=== PATIENT | male | born 1965 | race Caucasian/White ===

== ENCOUNTER 2018-01-14 14:02 | Inpatient (IN) | END 2018-01-21 14:50 | disposition home or self-care (01) | DRG 872 ==

== ENCOUNTER 2018-02-21 13:06 | Emergency (ER) | END 2018-02-21 15:09 | disposition left against medical advice (07) ==

== ENCOUNTER 2018-02-21 15:17 | Emergency (ER) | END 2018-02-21 18:12 | disposition home or self-care (01) ==

== ENCOUNTER 2018-12-31 19:46 | Inpatient (IN) | payer OTHER ==
[~2018-12-31] VITALS: Ht 182.9 cm; Wt 80.9 kg
[~2018-12-31 19:46] MED LIST: HYDR-3980 PO; PRED20TA PO
[2018-12-31 20:40] VITALS: Ht 182.9 cm; Wt 80.9 kg
[2018-12-31 21:00] VITALS: BP 112/70; PULSE 90; RESP 18
[2018-12-31] MEDS: morphine 2 MG INJ IV PRN (21:57)
[2018-12-31] MEDS ORDERED: OXYCODONE/ACETAMINOPHEN (5/325) TAB PO PRN (22:00)
[2018-12-31] MEDS ORDERED: ACETAMINOPHEN 325 MG TAB PO PRN (22:00)
[2018-12-31] MEDS ORDERED: ONDANSETRON 4 MG INJ IV PRN (22:00)
[2018-12-31] MEDS ORDERED: NACL 0.9% 3 ML SYG IV SCH (22:00)
[2018-12-31] MEDS: SOD CHLORIDE 0.9% 1,000 ML IV SCH (22:12)
[2019-01-01] MEDS ORDERED: COLCHICINE 0.6 MG TAB PO ONE ×2
--- NOTE | 2019-01-01 00:01 | HP ---
Date/Time of Note Date/Time of Note DATE: 01/01/19 TIME: 00:00 Assessment/Plan VTE Prophylaxis Pharmacological prophylaxis: other Assessment/Plan Hospital Course Objective Physical exam General: Patient is laying in bed and answers questions appropriately Mentation: Patient is alert and oriented 4, Head: Normocephalic atraumatic Eyes: EOMI, pupils reactive to light Neck: Supple, nontender, midline Respiratory: Clear to auscultation bilaterally Cardiovascular: regular rate, no obvious murmurs Gastrointestinal: non-tender to palpation, bowel sounds heard. Neurological: Moves all extremities spontaneously, although lower extremity movement is limited due to pain Skin: No new skin lesions Assessment and plan Severe gouty attack -X-ray done at outside facility was read only by ED physician that showed arthritis, will reorder knee and feet x-ray -Uric acid is elevated, consistent with gout attack -Dexamethasone and Toradol was given at outside facility, will continue oral prednisone for a short course and give a spot dose of colchicine. -We will hold off on additional indomethacin for now due to possible acute kidney injury due to volume depletion, -Discussed with patient the importance of taking allopurinol on a regular basis Bilateral knee and feet pain -Likely secondary to above gouty attack, however will still get x-ray to rule out other potential pathology Acute kidney injury versus chronic kidney disease -Patient was bedbound and unable to walk for the past 2 days, creatinine may be secondary to volume depletion, will give some normal saline, and reassess - Disposition -Treat for acute gouty attack, when ambulatory discharge patient. Result Diagram: 12/31/18222412/31/182224 Results 24hrs Laboratory Tests Test 12/31/18 22:25 White Blood Count 10.2 Red Blood Count 4.97 Hemoglobin 13.3 L Hematocrit 41.5 L Mean Corpuscular Volume 83.5 Mean Corpuscular Hemoglobin 26.8 L Mean Corpuscular Hemoglobin Concent 32.0 Red Cell Distribution Width 14.1 Platelet Count 158 Mean Platelet Volume 9.8 Immature Granulocytes % 0.500 H Neutrophils % 90.4 H Lymphocytes % 4.3 L Monocytes % 4.7 Eosinophils % 0.0 Basophils % 0.1 Nucleated Red Blood Cells % 0.0 Immature Granulocytes # 0.050 H Neutrophils # 9.2 H Lymphocytes # 0.4 L Monocytes # 0.5 Eosinophils # 0.0 Basophils # 0.0 Nucleated Red Blood Cells # 0.0 Erythrocyte Sedimentation Rate 50 H Sodium Level 136 Potassium Level 4.5 Chloride Level 95 L Carbon Dioxide Level 25 Anion Gap 16 H Blood Urea Nitrogen 18 Creatinine 1.33 H Est Glomerular Filtrat Rate mL/min 56 L Glucose Level 357 H Uric Acid 9.3 H Calcium Level 9.2 Total Bilirubin 0.6 Direct Bilirubin 0.00 Indirect Bilirubin 0.6 Aspartate Amino Transf (AST/SGOT) 18 Alanine Aminotransferase (ALT/SGPT) < 6 L Alkaline Phosphatase 104 Total Protein 7.6 Albumin 3.8 Globulin 3.80 H Albumin/Globulin Ratio 1.00 HPI/ROS Admit Date/Time Admit Date/Time Dec 31, 2018 at 20:34 Hx of Present Illness Patient is a male with a past medical history significant for moderate to severe gouty arthritis who presents to [facility] as a transfer from outside facility. Patient states that he has suffered from a gouty attack and has been unable to move for the past 2 days which is why he called ambulance and was sent over to the other hospital. Patient was transferred for insurance reasons. Patient received IV steroids, as well as IV Toradol at other facility and patient already feels a little bit better. Patient does not take allopurinol on a normal basis. Patient currently denies chest pain, shortness of breath, headache, nausea, vomiting, abdominal pain. Patient states the pain is worse in the bilateral knees in the bilateral feet area with some radiation up to his left groin PMH/Family/Social Past Medical History Medications Current Medications Influenza Virus Vaccine Quadrival (Fluzone) 0.5 ml ONCE ONCE IM* ; Start 01/01/19 at 10:00; Stop 01/01/19 at 10:01 Sodium Chloride 1,000 ml @ 40 mls/hr Q24H IV Last administered on 12/31/18at 22:12; Admin Dose 40 MLS/HR; Start 12/31/18 at 21:42; Stop 01/01/19 at 22:41 IV Flush (NS 3 ml) 3 ml PER PROTOCOL IV ; Start 12/31/18 at 22:00 Ondansetron HCl (Zofran Inj) 4 mg Q6H PRN IV NAUSEA/VOMITING; Start 12/31/18 at 22:00 Acetaminophen (Tylenol Tab) 650 mg Q6H PRN PO .PAIN 1-3 OR TEMP; Start 12/31/18 at 22:00 Oxycodone/ Acetaminophen (Percocet (5/ 325)) 1 tab Q6H PRN PO .PAINS 4-6 Last administered on 12/31/18at 23:43; Admin Dose 1 TAB; Start 12/31/18 at 22:00 Morphine Sulfate (morphine) 2 mg Q4H PRN IV .PAIN 7-10 Last administered on 12/31/18at 21:57; Admin Dose 2 MG; Start 12/31/18 at 22:00 Colchicine (Colchicine) 1.2 mg ONCE ONCE PO ; Start 01/01/19 at 00:00; Stop 01/01/19 at 00:01 Colchicine (Colchicine) 0.6 mg ONCE ONCE PO ; Start 01/01/19 at 00:00; Stop 01/01/19 at 00:01 Prednisone (Prednisone) 20 mg DAILY PO ; Start 01/01/19 at 09:00; Stop 01/03/19 at 09:01 Coded Allergies: No Known Allergies (Verified Allergy, Unknown, 12/31/18) Family History Significant Family History: no pertinent family hx Social History Smoking Status: Smoker,current status unk Exam/Review of Systems Vital Signs Vitals Vital Signs Date Temp Pulse Resp B/P (MAP) Pulse Ox O2 O2 Flow FiO2 Time Delivery Rate 12/31/18 97.8 90 18 112/70 95 Room Air 21:00 (84) Intake and Output 12/31/18 12/31/18 01/01/19 1414:59 22:59 06:59 IntakeIntake Total 200 ml OutputOutput Total 200 ml BalanceBalance 0 ml BRANT GRIFFIN Jan 01, 2019 00:01
[2019-01-01 01:28] VITALS: BP 107/66; PULSE 70; RESP 18
[2019-01-01 08:17] VITALS: BP 117/72; PULSE 71; RESP 16
[2019-01-01] MEDS: predniSONE 20 MG TAB PO SCH (09:33)
[2019-01-01] MEDS: morphine 2 MG INJ IV PRN ×3 (09:40→19:55)
--- NOTE | 2019-01-01 14:03 | PN ---
Date/Time of Note Date/Time of Note DATE: 01/01/19 TIME: 14:00 Assessment/Plan VTE Prophylaxis Risk score (from Ns)>0 risk: 3 SCD applied (from Ns): Yes SCD contraindicated: low risk/ambulating Pharmacological prophylaxis: LMWH Lines/Catheters IV [facility]from [facility] Peripheral IV Urinary Cath still in place: No Assessment/Plan Hospital Course Assessment and plan 1. Acute severe gout exacerbation, stable improved continue colchicine prednisone 2. Chronic tophaceous gout, consider allopurinol. Outpatient referral. May need to cut back on protein and soda 3. Acute renal failure stable resolved 4. Debility, start PT may need DME 5. Medication nonadherence? S: Patient feels better but unable to ambulate. No fever diarrhea. Does not take allopurinol and had some lasagna and lots of soda lately Objective: Vital signs stable Physical exam No pallor Regular Clear Benign No edema.+bilat lwr ext/ erythema of his toes dimin range of motion of toes and ankle. Result Diagram: 01/01/19 0557 01/01/19 0556 Results 24hrs Laboratory Tests Test 12/31/18 22:25 01/01/19 05:56 01/01/19 05:57 White Blood Count 10.2 9.4 Red Blood Count 4.97 4.73 Hemoglobin 13.3 L 12.9 L Hematocrit 41.5 L 39.5 L Mean Corpuscular Volume 83.5 83.5 Mean Corpuscular Hemoglobin 26.8 L 27.3 L Mean Corpuscular Hemoglobin Concent 32.0 32.7 Red Cell Distribution Width 14.1 13.5 Platelet Count 158 143 Mean Platelet Volume 9.8 9.4 Immature Granulocytes % 0.500 H 0.600 H Neutrophils % 90.4 H 89.1 H Lymphocytes % 4.3 L 5.1 L Monocytes % 4.7 5.1 Eosinophils % 0.0 0.0 Basophils % 0.1 0.1 Nucleated Red Blood Cells % 0.0 0.0 Immature Granulocytes # 0.050 H 0.060 H Neutrophils # 9.2 H 8.4 H Lymphocytes # 0.4 L 0.5 L Monocytes # 0.5 0.5 Eosinophils # 0.0 0.0 Basophils # 0.0 0.0 Nucleated Red Blood Cells # 0.0 0.0 Erythrocyte Sedimentation Rate 50 H Sodium Level 136 138 Potassium Level 4.5 4.5 Chloride Level 95 L 99 Carbon Dioxide Level 25 27 Anion Gap 16 H 12 Blood Urea Nitrogen 18 24 H Creatinine 1.33 H 1.19 Est Glomerular Filtrat Rate mL/min 56 L > 60 Glucose Level 357 H 355 H Uric Acid 9.3 H Calcium Level 9.2 9.3 Total Bilirubin 0.6 0.2 Direct Bilirubin 0.00 0.00 Indirect Bilirubin 0.6 0.2 Aspartate Amino Transf (AST/SGOT) 18 14 L Alanine Aminotransferase (ALT/SGPT) < 6 L < 6 L Alkaline Phosphatase 104 99 Total Protein 7.6 6.9 Albumin 3.8 3.5 Globulin 3.80 H 3.40 H Albumin/Globulin Ratio 1.00 1.02 Hemoglobin A1c 5.6 Magnesium Level 2.2 Exam/Review of Systems Exam Vitals Vital Signs Date Temp Pulse Resp B/P (MAP) Pulse Ox O2 O2 Flow FiO2 Time Delivery Rate 01/01/19 97.8 71 16 117/72 100 08:17 (87) 01/01/19 Room Air 01:28 Intake and Output 12/31/18 12/31/18 01/01/19 1414:59 22:59 06:59 IntakeIntake Total 340 ml OutputOutput Total 600 ml BalanceBalance -260 ml Results Results 24hrs Laboratory Tests Test 12/31/18 22:25 01/01/19 05:56 01/01/19 05:57 White Blood Count 10.2 9.4 Red Blood Count 4.97 4.73 Hemoglobin 13.3 L 12.9 L Hematocrit 41.5 L 39.5 L Mean Corpuscular Volume 83.5 83.5 Mean Corpuscular Hemoglobin 26.8 L 27.3 L Mean Corpuscular Hemoglobin Concent 32.0 32.7 Red Cell Distribution Width 14.1 13.5 Platelet Count 158 143 Mean Platelet Volume 9.8 9.4 Immature Granulocytes % 0.500 H 0.600 H Neutrophils % 90.4 H 89.1 H Lymphocytes % 4.3 L 5.1 L Monocytes % 4.7 5.1 Eosinophils % 0.0 0.0 Basophils % 0.1 0.1 Nucleated Red Blood Cells % 0.0 0.0 Immature Granulocytes # 0.050 H 0.060 H Neutrophils # 9.2 H 8.4 H Lymphocytes # 0.4 L 0.5 L Monocytes # 0.5 0.5 Eosinophils # 0.0 0.0 Basophils # 0.0 0.0 Nucleated Red Blood Cells # 0.0 0.0 Erythrocyte Sedimentation Rate 50 H Sodium Level 136 138 Potassium Level 4.5 4.5 Chloride Level 95 L 99 Carbon Dioxide Level 25 27 Anion Gap 16 H 12 Blood Urea Nitrogen 18 24 H Creatinine 1.33 H 1.19 Est Glomerular Filtrat Rate mL/min 56 L > 60 Glucose Level 357 H 355 H Uric Acid 9.3 H Calcium Level 9.2 9.3 Total Bilirubin 0.6 0.2 Direct Bilirubin 0.00 0.00 Indirect Bilirubin 0.6 0.2 Aspartate Amino Transf (AST/SGOT) 18 14 L Alanine Aminotransferase (ALT/SGPT) < 6 L < 6 L Alkaline Phosphatase 104 99 Total Protein 7.6 6.9 Albumin 3.8 3.5 Globulin 3.80 H 3.40 H Albumin/Globulin Ratio 1.00 1.02 Hemoglobin A1c 5.6 Magnesium Level 2.2 Medications Medication Current Medications Sodium Chloride 1,000 ml @ 40 mls/hr Q24H IV Last administered on 12/31/18at 22:12; Admin Dose 40 MLS/HR; Start 12/31/18 at 21:42; Stop 01/01/19 at 22:41 IV Flush (NS 3 ml) 3 ml PER PROTOCOL IV ; Start 12/31/18 at 22:00 Ondansetron HCl (Zofran Inj) 4 mg Q6H PRN IV NAUSEA/VOMITING; Start 12/31/18 at 22:00 Acetaminophen (Tylenol Tab) 650 mg Q6H PRN PO .PAIN 1-3 OR TEMP; Start 12/31/18 at 22:00 Oxycodone/ Acetaminophen (Percocet (5/ 325)) 1 tab Q6H PRN PO .PAINS 4-6 Last administered on 12/31/18at 23:43; Admin Dose 1 TAB; Start 12/31/18 at 22:00 Morphine Sulfate (morphine) 2 mg Q4H PRN IV .PAIN 7-10 Last administered on 01/01/19at 09:40; Admin Dose 2 MG; Start 12/31/18 at 22:00 Prednisone (Prednisone) 20 mg DAILY PO Last administered on 01/01/19at 09:33; Admin Dose 20 MG; Start 01/01/19 at 09:00; Stop 01/03/19 at 09:01 DANIEL SUERO MD Jan 01, 2019 14:03
[2019-01-01 14:44] VITALS: BP 109/66; PULSE 72; RESP 16
[2019-01-01] MEDS: SOD CHLORIDE 0.9% 1,000 ML IV SCH ×2 (19:56→21:09)
[2019-01-02] MEDS: morphine 2 MG INJ IV PRN ×3 (01:44→10:57)
[2019-01-02 02:00] VITALS: BP 114/68; PULSE 65; RESP 18
[2019-01-02 07:13] VITALS: BP 103/63; PULSE 70; RESP 16
[2019-01-02] MEDS: predniSONE 20 MG TAB PO SCH (08:24)
[2019-01-02] MEDS ORDERED: ENOXAPARIN 30 MG/0.3 ML SYG SC SCH (09:00)
[2019-01-02] MEDS ORDERED: COLCHICINE 0.6 MG TAB PO SCH (09:00)
[2019-01-02] MEDS ORDERED: FAMO-96 PO (13:01)
[2019-01-02] MEDS ORDERED: INDO-39 PO (13:01)
[2019-01-02] MEDS ORDERED: PRED20TA PO (13:01)
--- NOTE | 2019-01-02 13:05 | PDOCDIS ---
Discharge Instructions CONDITION [id number] Patient Condition: [id number] Stable HOME CARE INSTRUCTIONS: [id number] Diet Instructions: [id number] Regular [id number] Special Diet: Nfsce1d Low uric acid FOLLOW UP/APPOINTMENTS Follow-up Plan Daryn Mckeon MD Specialty: Internal Medicine Office Address: [address] [place] [address] [place], [place] [id number] Office OTHER ORDERS: Other Orders: 1. Take a regular, low uric acid diet. 2. Take medications as per prescription. 3. Follow-up with your primary care physician in 2 weeks. If you do not have a primary care physician, please call Dr. Daryn Mckeon's office. 4. Please follow-up with your insurance regarding rheumatology appointment. 5. Please go to the nearest emergency room if you have worsening joint pain. MICKIE MONTERO NP Jan 02, 2019 13:05
--- NOTE | 2019-01-02 13:13 | DS ---
Date/Time of Note Date/Time of Note DATE: 01/02/19 TIME: 13:11 Discharge Summary Admission/Discharge Info Admit Date/Time Dec 31, 2018 at 20:34 Discharge Date/Time Discharge Diagnosis 1. Acute gout flare. 2. Normocytic anemia. 3. Acute nonoliguric kidney injury. Patient Condition: Stable Procedures Left Foot X-Ray IMPRESSION: Hallux valgus deformity. Findings described above suggestive of gout with dense tophi at the first MTP, base of the fifth metatarsal and ankle. Right Foot X-Ray IMPRESSION: 1. Extensive marginal erosions of the first through fifth rays with tophi most compatible with gout. Bilateral Knee X-Ray IMPRESSION: Findings concerning for advanced gouty arthritis of the knees. Hx of Present Illness This is a 53-year-old male with gouty arthritis who went to an outside facility because of inability to move secondary to gout attack. The patient verbalized the pain is worse in bilateral feet. Patient also verbalized pain in bilateral knees. The patient was transferred to [facility] for further evaluation because of insurance reasons. Hospital Course The patient had evidence of LUCIANO with a creatinine of 1.33. Therefore, the patient was not started on any NSAIDs. The patient was started on steroids. The patient was started on colchicine. The patient was encouraged to follow a diet low in uric acid. Nevertheless, the patient was noticed to be drinking too much soda. The patient's uric acid level was 9.3. The patient responded well to the treatment strategy. The patient's renal failure resolved with holding nephrotoxic medications. The patient was noticed to have hyperglycemia. This was secondary to underlying steroid use. The patient's hemoglobin A1c was within normal limits. The patient has chronic gout. The patient may be a good candidate for urate lowering therapy with allopurinol. Patient needs outpatient rheumatology follow-up. Case management order was put in for arranging with insurance for outpatient rheumatology follow-up. Meanwhile, the patient will be discharged home on tapering dose of steroids as the patient's symptomatology improved significantly. Patient was noticed to have a normocytic anemia. The patient's H&H remained stable. Discharge Instructions 1. Take a regular, low uric acid diet. 2. Take medications as per prescription. 3. Follow-up with your primary care physician in 2 weeks. If you do not have a primary care physician, please call Dr. Daryn Mckeon's office. 4. Please follow-up with your insurance regarding rheumatology appointment. 5. Please go to the nearest emergency room if you have worsening joint pain. The patient verbalized understanding of his discharge instructions. The patient was seen in collaboration with Dr. Ibarra. Home Meds Active Scripts Famotidine* (Pepcid*) 20 Mg Tablet, 20 MG PO BID for 7 Days, #14 TAB Prov:MICKIE MONTERO CLINICAL PHARMACY TECHNICIAN 01/02/19 Indomethacin* (Indocin*) 50 Mg Cap, 50 MG PO TID for 3 Days, #9 CAP Prov:MICKIE MONTERO CLINICAL PHARMACY TECHNICIAN 01/02/19 Prednisone* (Prednisone*) 20 Mg Tab, 20 MG PO DAILY for 1 Day, TAB Prednisone 20 mg p.o. daily 1 day, then Prednisone 10 mg p.o. daily 2 days, then Prednisone 5 mg p.o. daily 2 days. Prov:MICKIE MONTERO CLINICAL PHARMACY TECHNICIAN 01/02/19 Discontinued Scripts Prednisone* (Prednisone*) 20 Mg Tab, 60 MG PO DAILY for 5 Days, TAB Prov:JER MANZANO MD 02/21/18 Hydrocodone/Acetaminophen ([place] 10-325 Tablet) 1 Each Tablet, 1 TAB PO Q6H PRN for PAIN, #7 TAB Prov:JER MANZANO MD 02/21/18 Follow-up Plan Daryn Mckeon MD Specialty: Internal Medicine Office Address: [address] [place] [address] Office Primary Care Provider Not On Staff Doctor Time spent on discharge: > 30 minutes Pending Labs Laboratory Tests Test 01/02/19 05:00 White Blood Count 15.7 10^3/ul (4.8-10.8) Red Blood Count 4.62 10^6/ul (4.70-6.10) Hemoglobin 12.6 g/dl (14.0-18.0) Hematocrit 37.7 % (42.0-52.0) Mean Corpuscular Volume 81.6 fl (82.0-101.0) Mean Corpuscular Hemoglobin 27.3 pg (29.0-33.0) Mean Corpuscular Hemoglobin Concent 33.4 g/dl (32.0-37.0) Red Cell Distribution Width 13.6 % (11.5-14.5) Platelet Count 199 10^3/UL (140-415) Mean Platelet Volume 10.8 fl (7.4-10.4) Immature Granulocytes % 0.600 % (0.001-0.429) Neutrophils % 89.4 % (39.0-77.0) Lymphocytes % 5.5 % (15.0-51.0) Monocytes % 4.4 % (0.0-11.0) Eosinophils % 0.0 % (0.0-7.0) Basophils % 0.1 % (0.0-2.0) Nucleated Red Blood Cells % 0.0 /100WBC (0.0-0.0) Immature Granulocytes # 0.100 10^3/ul (0.0-0.031) Neutrophils # 14.1 10^3/ul (1.6-7.5) Lymphocytes # 0.9 10^3/ul (0.8-2.9) Monocytes # 0.7 10^3/ul (0.3-0.9) Eosinophils # 0.0 10^3/ul (0.0-0.5) Basophils # 0.0 10^3/ul (0.0-0.1) Nucleated Red Blood Cells # 0.0 10^3/ul (0.0-0.0) Sodium Level 138 mmol/L (135-144) Potassium Level 4.6 mmol/L (3.5-5.1) Chloride Level 101 mmol/L (97-110) Carbon Dioxide Level 25 mmol/L (21-31) Anion Gap 12 (5-13) Blood Urea Nitrogen 24 mg/dl (7-20) Creatinine 0.91 mg/dl (0.61-1.24) Est Glomerular Filtrat Rate mL/min > 60 mL/min (>60) Glucose Level 233 mg/dl (70-220) Hemoglobin A1c 5.7 % (0-5.9) Calcium Level 9.2 mg/dl (8.4-10.2) Phosphorus Level 2.4 mg/dl (2.5-4.9) Total Bilirubin 0.0 mg/dl (0.2-1.3) Direct Bilirubin 0.00 mg/dl (0.00-0.20) Indirect Bilirubin 0.0 mg/dl (0-1.1) Aspartate Amino Transf (AST/SGOT) 75 IU/L (15-46) Alanine Aminotransferase (ALT/SGPT) 41 IU/L (13-69) Alkaline Phosphatase 102 IU/L (42-121) Total Protein 6.8 g/dl (6.1-8.1) Albumin 3.3 g/dl (3.3-4.9) Globulin 3.50 g/dl (1.3-3.2) Albumin/Globulin Ratio 0.94 Thyroid Stimulating Hormone (TSH) 0.601 MIU/L (0.465-4.680) MICKIE MONTERO NP Jan 02, 2019 13:13
[2019-01-02 14:03] VITALS: BP 122/77; PULSE 75; RESP 16
== END 2019-01-02 15:05 | disposition home or self-care (01) | DRG 554 ==
LOC: 2NE 20:34
PROVIDERS: ADMIT Hospitalist; ATTEND Internal Medicine
DX: M1A.9XX1 Chronic gout, unspecified, with tophus (tophi) (principal); N17.9 Acute kidney failure, unspecified; F17.200 Nicotine dependence, unspecified, uncomplicated; R53.81 Other malaise; D64.9 Anemia, unspecified
CPT/HCPCS: 73630; 80053; 83036; 83735; 84100; 84443; 84560; 85025; 85651; 97162; J1650; J2270; J7030; J7512

== ENCOUNTER 2019-03-13 17:20 | Emergency (ER) | payer OTHER ==
[~2019-03-13] VITALS: Ht 182.9 cm; Wt 86.7 kg
[~2019-03-13 17:20] MED LIST changes: +FAMO-96 PO; -HYDR-3980 PO; +INDO-39 PO
[2019-03-13 17:32] VITALS: Ht 182.9 cm; Wt 86.7 kg
[2019-03-13] MEDS ORDERED: KETOROLAC 30 MG INJ IV STA (20:25)
[2019-03-13] MEDS ORDERED: IBUP-1542 PO (21:38)
[2019-03-13 21:50] VITALS: BP 125/82; PULSE 78; RESP 16
--- NOTE | 2019-03-13 22:23 | ERD ---
ER Documentation Chief Complaint Chief Complaint abdominal bloating, frequent urination, generalize body aches HPI Patient is a 53-year-old male with gout who presents with aching all over his body. The patient has diffuse joint pain. He says "1 year ago I had sepsis and it feels like when I had sepsis". He has cold sweats. The symptoms started a few days ago. He has had no treatment as of yet. Upon review of old medical re cords this is the patient's eighth visit to the ER since 2013. Review of the emergency department exchange system shows visits to 3 separate emergency departments for a total of 7 visits over the past 1 year. He does not remember the name of his primary doctor. ROS All systems reviewed and are negative except as per history of present illness. Medications Home Meds Active Scripts Ibuprofen* (Motrin*) 600 Mg Tab, 600 MG PO Q6H PRN for PAIN AND OR ELEVATED TEMP, #30 TAB Prov:NANCIE ROBLES MD 03/13/19 Famotidine* (Pepcid*) 20 Mg Tablet, 20 MG PO BID for 7 Days, #14 TAB Prov:MICKIE MONTERO NP 01/02/19 Indomethacin* (Indocin*) 50 Mg Cap, 50 MG PO TID for 3 Days, #9 CAP Prov:MICKIE MONTERO NP 01/02/19 Prednisone* (Prednisone*) 20 Mg Tab, 20 MG PO DAILY for 1 Day, TAB Prednisone 20 mg p.o. daily 1 day, then Prednisone 10 mg p.o. daily 2 days, then Prednisone 5 mg p.o. daily 2 days. Prov:MICKIE MONTERO NP 01/02/19 Allergies Allergies: Coded Allergies: No Known Allergies (Verified Allergy, Unknown, 12/31/18) PMhx/Soc History of Surgery: Yes (cervical , thoracic ,both left elbow, both knees , testicullar , ) Anesthesia Reaction: Yes (episode of resp/ cardiac arrest ) Hx Neurological Disorder: No Hx Respiratory Disorders: No Hx Cardiac Disorders: No Hx Psychiatric Problems: No Hx Miscellaneous Medical Probl: Yes (gout) Hx Alcohol Use: No Hx Substance Use: No Hx Tobacco Use: No Smoking Status: Never smoker FmHx Family History: diabetes Physical Exam Vitals Vital Signs Date Temp Pulse Resp B/P (MAP) Pulse Ox O2 O2 Flow FiO2 Time Delivery Rate 03/13/19 78 16 125/82 99 Room Air 21:50 (96) 03/13/19 97.8 83 16 128/87 100 Room Air 20:53 (101) 03/13/19 98.8 88 18 160/97 98 17:32 (118) Physical Exam Const: No acute distress Head: Atraumatic Eyes: Normal Conjunctiva ENT: Normal External Ears, Nose and Mouth. Neck: Full range of motion. No meningismus. Resp: Clear to auscultation bilaterally Cardio: Regular rate and rhythm, no murmurs Abd: Soft, non tender, non distended. Normal bowel sounds Skin: No petechiae or rashes Back: No midline or flank tenderness Ext: Tophi of the bilateral elbows Neur: Awake and alert Psych: Normal Mood and Affect Result Diagram: 03/13/19204003/13/192040 Results 24 hrs Laboratory Tests Test 03/13/19 20:33 03/13/19 20:41 POC Venous Lactate 1.9 mmol/L White Blood Count 8.7 10^3/ul Red Blood Count 5.38 10^6/ul Hemoglobin 14.7 g/dl Hematocrit 45.1 % Mean Corpuscular Volume 83.8 fl Mean Corpuscular Hemoglobin 27.3 pg Mean Corpuscular Hemoglobin Concent 32.6 g/dl Red Cell Distribution Width 15.9 % Platelet Count 187 10^3/UL Mean Platelet Volume 9.8 fl Immature Granulocytes % 0.300 % Neutrophils % 61.9 % Lymphocytes % 28.5 % Monocytes % 7.0 % Eosinophils % 1.8 % Basophils % 0.5 % Nucleated Red Blood Cells % 0.0 /100WBC Immature Granulocytes # 0.030 10^3/ul Neutrophils # 5.4 10^3/ul Lymphocytes # 2.5 10^3/ul Monocytes # 0.6 10^3/ul Eosinophils # 0.2 10^3/ul Basophils # 0.0 10^3/ul Nucleated Red Blood Cells # 0.0 10^3/ul Urine Color YELLOW Urine Clarity CLEAR Urine pH 5.0 Urine Specific Shepherd 1.012 Urine Ketones NEGATIVE mg/dL Urine Nitrite NEGATIVE mg/dL Urine Bilirubin NEGATIVE mg/dL Urine Urobilinogen NEGATIVE mg/dL Urine Leukocyte Esterase NEGATIVE Dave/ul Urine Microscopic RBC 0 /HPF Urine Microscopic WBC 0 /HPF Urine Hemoglobin 1+ mg/dL Urine Glucose NEGATIVE mg/dL Urine Total Protein NEGATIVE mg/dl Sodium Level 143 mmol/L Potassium Level 4.0 mmol/L Chloride Level 106 mmol/L Carbon Dioxide Level 23 mmol/L Anion Gap 14 Blood Urea Nitrogen 23 mg/dl Creatinine 1.01 mg/dl Est Glomerular Filtrat Rate mL/min > 60 mL/min Glucose Level 216 mg/dl Calcium Level 10.3 mg/dl Total Bilirubin 0.6 mg/dl Direct Bilirubin 0.00 mg/dl Indirect Bilirubin 0.6 mg/dl Aspartate Amino Transf (AST/SGOT) 22 IU/L Alanine Aminotransferase (ALT/SGPT) 12 IU/L Alkaline Phosphatase 86 IU/L Total Protein 8.5 g/dl Albumin 4.6 g/dl Globulin 3.90 g/dl Albumin/Globulin Ratio 1.17 Lipase 82 U/L Current Medications Medications Dose Sig/Carlos Start Time Status Last (Trade) Ordered Route PRN Stop Time Admin Dose Reason Admin Ketorolac 30 mg ONCE STAT 03/13/19 DC 03/13/19 Tromethamine IV 20:25 20:57 (Toradol) 03/13/19 20:27 Procedures/MDM EKG read by me: Rate/Rhythm: Regular rate and rhythm at a normal rate Intervals: Normal Impression: No evidence of ischemia or arrhythmia Patient is a 53-year-old male presents thinking that he might have sepsis. Lactic acid was normal. Laboratory studies were basically normal including a normal white blood cell count. I see no sign of infection at this time. The patient was given Toradol and feels better. Vital signs are normal. The patient will be discharged but will need to follow-up with his primary doctor within 1 week. He can return for any worsening symptoms. He will be given a prescription for ibuprofen. Departure Diagnosis: Primary Impression: Joint pain Joint pain location: unspecified Qualified Codes: M25.50 - Pain in unspecified joint Condition: Fair Patient Instructions: Gouty Arthritis Referrals: Your doctor Additional Instructions: Call your primary care doctor TOMORROW for an appointment during the next 1 WEEK.Tell the training developer that you were referred from this facility.See the doctor sooner or return here if your condition worsens before your appointment time. NANCIE ROBLES MD Mar 13, 2019 22:23
== END 2019-03-13 21:52 | disposition home or self-care (01) ==
LOC: E/R 17:20
DX: M25.50 Pain in unspecified joint (principal); R07.9 Chest pain, unspecified
CPT/HCPCS: 36415; 71045; 80053; 81001; 83605; 83690; 85025; 96374; J1885; Z7502

== ENCOUNTER 2019-05-24 14:32 | Emergency (ER) | payer OTHER ==
[~2019-05-24] VITALS: Ht 182.9 cm; Wt 84.0 kg
[~2019-05-24 14:32] MED LIST changes: +IBUP-1542 PO
[2019-05-24 14:34] VITALS: Ht 182.9 cm; Wt 84.0 kg
--- NOTE | 2019-05-24 15:01 | ERD ---
ER Documentation Chief Complaint Chief Complaint LEFT SIDE AP RADIATING TO BACK. SEEN IN [facility] FOR SAME HPI This is a 54-year-old male presenting today for abdominal pain. The patient endorses 3 to 4 days of left-sided abdominal pain radiating to the left flank. He was actually evaluated at [facility] on May 21, 2019 for similar symptoms. He had laboratory testing performed, including a CBC, CMP and lipase which were all normal. The patient's urinalysis was negative for infection or hematuria. A CT scan was also completed that revealed mild hepatosplenomegaly, cholelithiasis without cholecystitis, fatty infiltration of the pancreas with a questionable lobulated mass in the vicinity of the pancreatic tail for which it was recommended that he obtain an outpatient MRI for further assessment, a 3 mm nonobstructing right kidney stone without hydronephrosis, no appendicitis, and significant constipation. The patient was ultimately discharged in stable condition and told to follow-up. The patient has not followed up with anyone, and instead return to the emergency department today for persistent symptoms. The patient does not endorse any diarrhea. He does not endorse any black or bloody or tarry stools. He does not endorse dysuria or hematuria or urgency or frequency. The patient denies feeling sick recently. The patient denies fever or chills. The patient has had no headache or vision changes. The patient does not endorse neck or back pain. The patient denies lightheadedness or dizziness. The patient has had no chest pain or trouble breathing. The patient has had no focal deficits. The patient has had no weakness or numbness or tingling to the face or extremities. ROS All systems reviewed and are negative except as per history of present illness. Medications Home Meds Discontinued Scripts Ibuprofen* (Motrin*) 600 Mg Tab, 600 MG PO Q6H PRN for PAIN AND OR ELEVATED TEMP, #30 TAB Prov:NANCIE ROBLES MD 03/13/19 Famotidine* (Pepcid*) 20 Mg Tablet, 20 MG PO BID for 7 Days, #14 TAB Prov:MICKIE MONTERO NP 01/02/19 Indomethacin* (Indocin*) 50 Mg Cap, 50 MG PO TID for 3 Days, #9 CAP Prov:MICKIE MONTERO NP 01/02/19 Prednisone* (Prednisone*) 20 Mg Tab, 20 MG PO DAILY for 1 Day, TAB Prednisone 20 mg p.o. daily 1 day, then Prednisone 10 mg p.o. daily 2 days, then Prednisone 5 mg p.o. daily 2 days. Prov:MICKIE MONTERO [employer] 01/02/19 Allergies Allergies: Coded Allergies: No Known Allergies (Verified Allergy, Unknown, 05/24/19) PMhx/Soc History of Surgery: Yes (cervical , thoracic ,both left elbow, both knees , testicullar , ) Anesthesia Reaction: Yes (episode of resp/ cardiac arrest ) Hx Neurological Disorder: No Hx Respiratory Disorders: No Hx Cardiac Disorders: No Hx Psychiatric Problems: No Hx Miscellaneous Medical Probl: Yes (gout) Hx Alcohol Use: No Hx Substance Use: No Hx Tobacco Use: No FmHx Family History: No diabetes Physical Exam Vitals Vital Signs Date Temp Pulse Resp B/P (MAP) Pulse Ox O2 O2 Flow FiO2 Time Delivery Rate 05/24/19 97.8 79 18 150/108 98 14:34 (122) Physical Exam Const: No apparent distress, well-developed, well-nourished Head: Normocephalic, Atraumatic Eyes: Normal Conjunctiva. Extraocular movements intact. Pupils equal, round and reactive to light ENT: Normal External Ears, Nose and Mouth. Neck: Full range of motion. No meningismus. Resp: Clear to auscultation bilaterally, No wheezes, rales or rhonchi Cardio: Regular rate and rhythm. No murmurs, rubs or gallops Abd: Soft, non tender, non distended. Normal bowel sounds Skin: No petechiae or rashes Back: No midline tenderness. No CVA tenderness Ext: No cyanosis, or edema Neur: Awake and alert, oriented 4. Cranial nerves intact. No facial droop. Normal strength, sensation and coordination. Psych: Normal Mood and Affect Result Diagram: 05/24/19 1458 05/24/19 1458 Results 24 hrs Laboratory Tests Test 05/24/19 14:58 05/24/19 16:41 White Blood Count 7.3 10^3/ul Red Blood Count 5.17 10^6/ul Hemoglobin 14.5 g/dl Hematocrit 42.5 % Mean Corpuscular Volume 82.2 fl Mean Corpuscular Hemoglobin 28.0 pg Mean Corpuscular Hemoglobin Concent 34.1 g/dl Red Cell Distribution Width 14.5 % Platelet Count 150 10^3/UL Mean Platelet Volume 9.9 fl Immature Granulocytes % 0.300 % Neutrophils % 55.2 % Lymphocytes % 34.9 % Monocytes % 8.0 % Eosinophils % 1.2 % Basophils % 0.4 % Nucleated Red Blood Cells % 0.0 /100WBC Immature Granulocytes # 0.020 10^3/ul Neutrophils # 4.0 10^3/ul Lymphocytes # 2.5 10^3/ul Monocytes # 0.6 10^3/ul Eosinophils # 0.1 10^3/ul Basophils # 0.0 10^3/ul Nucleated Red Blood Cells # 0.0 10^3/ul Sodium Level 142 mmol/L Potassium Level 4.1 mmol/L Chloride Level 107 mmol/L Carbon Dioxide Level 24 mmol/L Anion Gap 11 Blood Urea Nitrogen 16 mg/dl Creatinine 0.94 mg/dl Est Glomerular Filtrat Rate mL/min > 60 mL/min Glucose Level 91 mg/dl Calcium Level 10.0 mg/dl Total Bilirubin 0.8 mg/dl Direct Bilirubin 0.00 mg/dl Indirect Bilirubin 0.8 mg/dl Aspartate Amino Transf (AST/SGOT) 19 IU/L Alanine Aminotransferase (ALT/SGPT) 15 IU/L Alkaline Phosphatase 85 IU/L Total Protein 8.0 g/dl Albumin 4.5 g/dl Globulin 3.50 g/dl Albumin/Globulin Ratio 1.28 Lipase 62 U/L Urine Color STRAW Urine Clarity CLEAR Urine pH 6.0 Urine Specific [place] 1.005 Urine Ketones NEGATIVE mg/dL Urine Nitrite NEGATIVE mg/dL Urine Bilirubin NEGATIVE mg/dL Urine Urobilinogen NEGATIVE mg/dL Urine Leukocyte Esterase NEGATIVE Dave/ul Urine Microscopic RBC 1 /HPF Urine Microscopic WBC 0 /HPF Urine Hemoglobin 1+ mg/dL Urine Glucose NEGATIVE mg/dL Urine Total Protein NEGATIVE mg/dl Procedures/MDM MDM The patient's presentation warrants further investigation. Previous medical records, if available, were reviewed. LABS The patient's laboratory testing was obtained and reviewed. No emergent treatment was required unless described below. CBC: No E/o systemic infection or severe anemia or thrombocytopenia Chemistry: No E/o severe acidosis or alkalosis or renal failure or liver dis ease or diabetic ketoacidosis Lipase: No E/o pancreatitis Urinalysis: No E/o infection or hematuria TREATMENT/DISPOSITION The patient presents with abdominal pain. The patient had a CT scan completed 3 days ago that was mostly unremarkable for an emergent pathology or etiology of his symptoms. The patient does appear to have a possible pancreatic mass that does require further follow-up. The patient does likely require an MRI, but this may be completed in outpatient setting. He does not require this advanced imaging modality emergently. The patient's lipase continues to be normal today. I do not suspect acute pancreatitis. There is also evidence of constipation, which could be the etiology of his symptoms. I have low suspicion for a small bowel obstruction. The patient may take MiraLAX in an outpatient setting for this. The patient does have known cholelithiasis and a small nonobstructing right-sided kidney stone, but these symptoms do not correlate with his symptoms today. I do not suspect biliary colic or cholecystitis. There is no evidence of left-sided nephrolithiasis. The patient does not have any evidence of peritonitis. The patient does not have clinical symptoms concerning for mesenteric ischemia or ischemic colitis. The patient does not have any epigastric pain. I have low suspicion for gastritis, PUD or GERD. The patient does not have any right lower quadrant tenderness, or periumbilical tenderness. I have low suspicion for appendicitis. The patient's CT scan from 3 days ago revealed a normal appendix. I do not feel that the patient requires subsequent advanced imaging today. The patient does not have suprapubic tenderness. I have decreased suspicion for cystitis. The patient does not have any left lower quadrant tenderness, and I have low suspicion for diverticulosis or diverticulitis. The patient does not have any flank tenderness. The patient does not have gross hematuria. I have decreased suspicion for nephrolithiasis or renal colic. The patient does not have any palpable pulsatile mass or severe abdominal pain radiating to the back. I have low suspicion for aortic aneurysm, dissection or rupture. DISCHARGE Upon reevaluation of the patient, symptoms have improved. No emergent diagnoses were identified. At this time, I feel that the patient stable for discharge. The patient was instructed to follow-up with a primary care physician in 1-3 days. The patient will be given strict precautions with which to return to the emergency department. Prescriptions: Miralax The patient's blood pressure was elevated at greater than 120/80 while in the emergency department. The patient was otherwise stable with no evidence of hypertensive urgency or emergency. The patient does not require admission for blood pressure control. I have discussed with the patient the risks of hypertension. I have instructed the patient to return to the ER for any new or worsening symptoms including chest pain, shortness of breath, headache, blurred vision, confusion, nausea, vomiting or LOC. I have advised the patient to follow up with the primary care physician for outpatient monitoring and treatment for hypertension in 1-3 days. Disclaimer: Inadvertent spelling and grammatical errors are likely due to EHR/dictation software use and do not reflect on the overall quality of patient care. Note that the electronic time recorded on this note does not necessarily reflect the actual time of the patient encounter. Departure Diagnosis: Primary Impression: Abdominal pain Abdominal location: unspecified location Qualified Codes: R10.9 - Unspecified abdominal pain Additional Impressions: Pancreatic mass Cholelithiasis Cholelithiasis location: gallbladder Cholecystitis presence: without cholecystitis Biliary obstruction: without biliary obstruction Qualified Codes: K80.20 - Calculus of gallbladder without cholecystitis without obstruction Hepatosplenomegaly Right nephrolithiasis Constipation Constipation type: unspecified constipation type Qualified Codes: K59.00 - Constipation, unspecified Condition: Stable Patient Instructions: Abdominal Pain, Gallstones, Kidney Stone (Urine) Additional Instructions: At [facility], you had a CT scan performed that revealed the possibility of a pancreatic mass. It is very important that you follow-up with your primary care physician who may help coordinate necessary subsequent testing, such as an MRI. The CT scan also revealed gallstones, which do not correlate with your symptoms today, but it is important that you are aware of th is. You also appear to have a right-sided kidney stone that is an incidental finding and not related to your symptoms today. There is also evidence of significant constipation, which could correlate with your symptoms. Please take MiraLAX as prescribed. Thank you for for coming to [facility] for your care today. Please ask your nurse or provider if you have questions about your care today and do not leave until all your questions have been answered. Please use any medications given as directed and follow-up with your doctor (or the doctor you were referred to) in the next 1-3 days. If you do not have a primary care doctor you may follow up at the [facility] (listed below). You may also use motrin and tylenol as needed for fever and/or pain unless instructed otherwise by your provider or nurse. Indications for more urgent follow-up have been discussed, but you may return to the Emergency Department at ANY time for any worrisome or worsening symptoms. If you have abdominal pain, please know that no test or exam you received is perfect and you should follow up within 8 hours for continued pain. If you had any imaging studies today, such as an X-Ray or CT Scan, these studies will be reviewed later by a radiologist. You will be called if there are important findings that were not identified today, so make sure the contact information you provided at registration is correct. If you received any narcotic pain control medicine today, such as Vicodin, Morphine or Dilaudid, your coordination and judgment may be affected for a number of hours. Please do not drive or operate heavy machinery, and you may want someone to assist you at home. If you were given a prescription for narcotic medication, be aware that it is very addictive- use sparingly and only if necessary. PLEASE SEEK FURTHER EVALUATION AND MANAGEMENT AT YOUR DOCTORS OFFICE WITHIN THE NEXT 1-3 DAYS. IT IS YOUR RESPONSIBILITY TO MAKE AN APPOINTMENT FOR FOLOW-UP CARE. IF YOU HAVE A PRIMARY DOCTOR, PLEASE CALL THEIR OFFICE TO SCHEDULE AN APPOINTMENT FOR FOLLOW UP. IF YOU DO NOT HAVE A PRIMARY DOCTOR YOU CAN CALL OUR PHYSICIAN REFERRAL HOTLINE AT IF YOU CAN NOT AFFORD TO SEE A PHYSICIAN YOU CAN CHOSE FROM THE FOLLOWING [facility]: [facility] [address] [facility] [address] [facility] [address] [facility] [address] [facility] [address] [facility]. [facility]. [address] SAM VOGT MD May 24, 2019 15:01
[2019-05-24] MEDS ORDERED: POLY17PO6 PO (17:15)
[2019-05-24] MEDS ORDERED: FENTAnyl 50 MCG/ML VIAL IV ONE (17:30)
[2019-05-24 17:51] VITALS: BP 136/88; PULSE 73; RESP 18
== END 2019-05-24 17:53 | disposition home or self-care (01) ==
LOC: E/R 14:32
DX: K80.20 Calculus of gallbladder without cholecystitis without obstruction (principal); R16.2 Hepatomegaly with splenomegaly, not elsewhere classified; N20.0 Calculus of kidney; K59.00 Constipation, unspecified; K86.89 Other specified diseases of pancreas
CPT/HCPCS: 36415; 80053; 81001; 83690; 85025; 96374; J3010; Z7502